=== PATIENT | female | born 1950 | race African-American/Black ===

== ENCOUNTER 2018-02-27 09:45 | Outpatient (CLI) | payer MEDICARE, OTHER | END 2018-02-27 09:46 | disposition home or self-care (01) | LOC: BICMAMMO 09:45 | PROVIDERS: ATTEND Family Medicine | DX: Z12.31 Encounter for screening mammogram for malignant neoplasm of breast (principal); Z80.3 Family history of malignant neoplasm of breast | CPT/HCPCS: 77063; 77067 ==

== ENCOUNTER 2018-05-16 10:08 | Outpatient (CLI) | payer MEDICARE, OTHER ==
--- NOTE | 2018-05-16 14:03 | RAD ---
RIGHT HAND THREE VIEWS: HISTORY: Weakness and deformity of the fourth and fifth digits. COMPARISON: None. FINDINGS: Along the medial margin of the proximal phalanx of the small finger is a sagittally oriented punctate calcification, which may reflect a small osseous avulsion from the ulnar collateral ligament. No ot her acute displaced fracture is appreciated. There is moderate narrowing of the metacarpophalangeal joints. Severe degenerative disease of the th umb carpometacarpal joint with hypertrophic osteophyte formation. There is narrowing of the radial c arpal joints. IMPRESSION: Possible small avulsion fracture of the ulnar collateral ligament insertion of the proximal phalanx o f the small finger. POS: [facility]
== END 2018-05-16 10:09 | disposition home or self-care (01) ==
LOC: BICRAD 10:08
PROVIDERS: ATTEND Physician Assistant Medical
DX: R29.898 Other symptoms and signs involving the musculoskeletal system (principal); M20.001 Unspecified deformity of right finger(s)

== ENCOUNTER 2019-02-22 12:21 | Outpatient (CLI) | payer MEDICARE, OTHER ==
--- NOTE | 2019-02-23 11:04 | EKG ---
Test Reason : Blood Pressure : / mmHG Vent. Rate : 053 BPM Atrial Rate : 053 BPM P-R Int : 136 ms QRS Dur : 088 ms QT Int : 458 ms P-R-T Axes : 071 066 077 degrees QTc Int : 429 ms Sinus bradycardia Nonspecific ST abnormality Abnormal ECG Confirmed by CARLITOS MARTINEZ ([id number]) on 02/23/2019 11:04:34 AM Referred By: MARINA Confirmed By:CARLITOS MARTINEZ
== END 2019-02-22 12:22 | disposition home or self-care (01) ==
LOC: LABBT 12:21
PROVIDERS: ATTEND Student in an Organized Health Care Education/Training Program
DX: Z01.818 Encounter for other preprocedural examination (principal); N85.02 Endometrial intraepithelial neoplasia [EIN]
CPT/HCPCS: 80053; 80076; 85027; 86850; 86900; 86901; 93005; 93010

== ENCOUNTER 2019-02-26 06:03 | Day surgery (SDC) | payer MEDICARE, OTHER ==
[2019-02-22 12:42] VITALS: BMI 39.9
[2019-02-22 13:51] LABS: Hemoglobin 12.3 g/dL (12.0-16.0); Mean Corpuscular HGB CONC 33.2 g/dL (32.0-36.0); Mean Corpuscular Hemoglobin 27.5 pg (27.0-31.0); Mean Corpuscular Volume 83.1 fL (78.0-98.0); Mean Platelet Volume 8.5 fL (7.4-10.4); Platelet Count 246 thou/uL (130-400); RBC Distribution Width 12.9 % (11.5-14.5); Red Blood Cell (RBC) Count 4.48 mill/uL (4.20-5.40); White Blood Cell (WBC) Count 8.7 thou/uL (4.8-10.8)
[2019-02-22 14:17] LABS: ALT (SGPT) 16 U/L (8-55); AST (SGOT) 21 U/L (5-34); Albumin 4.1 g/dL (3.4-4.8); Alkaline Phosphatase 103 U/L (40-150); Anion Gap 15 mmol/L (10-20); BUN (Urea Nitrogen) 19 mg/dL (9.8-20.1); Bilirubin, Direct 0.2 mg/dL (0.1-0.3); Bilirubin, Total 0.4 mg/dL (0.2-1.2); Calc. Creatinine Clearance 0 mL/min (70-130); Calcium 9.6 mg/dL (7.8-10.44); Carbon Dioxide 26 mmol/L (23-31); Chloride 105 mmol/L (98-107); Estimated GFR-MDRD 66; Glucose 96 mg/dL (80-115); Potassium 4.4 mmol/L (3.5-5.1); Protein, Total 7.1 g/dL (6.0-8.3); Sodium 142 mmol/L (136-145)
[2019-02-26] MEDS ORDERED: CeleCOXIB 100 MG CAP ONE (06:15)
[2019-02-26] MEDS ORDERED: Gabapentin 300 MG CAP ONE (06:15)
[2019-02-26] MEDS ORDERED: Famotidine/PF 20 mg/2ml Vial ONE (06:15)
[2019-02-26] MEDS ORDERED: Fentanyl 100 MCG/2 ML VIAL ONE (06:44)
[2019-02-26] MEDS ORDERED: Lidocaine 2% Jelly 5 ML TUBE ONE (06:59)
[2019-02-26] MEDS ORDERED: Bupivacaine HCl 0.5%/Epinephrine 1:200,000/PF 30 ml Vial ONE (07:18)
[2019-02-26] MEDS ORDERED: Bacitracin Zinc Ointment 30 gm TUBE ONE (09:20)
[2019-02-26] MEDS ORDERED: Promethazine HCl 25 MG/ML VIAL IM PRN ×2 (09:26→09:43)
[2019-02-26] MEDS ORDERED: Fentanyl 100 MCG/2 ML VIAL SLOW IVP PRN (09:26)
[2019-02-26] MEDS ORDERED: Zolpidem Tartrate 5 MG TAB PO PRN (09:26)
[2019-02-26] MEDS ORDERED: Ondansetron PF 4 MG/2 ML Vial IVP PRN (09:26)
[2019-02-26] MEDS ORDERED: Simethicone Chewable 80 MG TAB PO PRN (09:26)
[2019-02-26] MEDS ORDERED: diphenhydrAMINE 25 MG CAP PO PRN (09:26)
[2019-02-26] MEDS ORDERED: Bisacodyl 10 MG SUPP PR PRN (09:26)
[2019-02-26] MEDS ORDERED: Acetaminophen/Codeine 30-300mg Tablet PO PRN ×2 (09:26)
[2019-02-26] MEDS ORDERED: Acetaminophen 325 MG TAB PO PRN (09:26)
[2019-02-26] MEDS ORDERED: hydrALAZINE 20 MG/ML VIAL SLOW IVP PRN (09:30)
[2019-02-26] MEDS ORDERED: Ondansetron HCl/PF 4 MG/2 ML Vial IVP PRN (09:43)
[2019-02-26] MEDS ORDERED: Promethazine HCl 25 MG/ML VIAL SLOW IVP PRN (09:43)
[2019-02-26] MEDS: Sodium Chloride 0.9% 1,000 ML IV SCH (11:35)
--- NOTE | 2019-02-26 12:25 | OP ---
DATE OF PROCEDURE: 02/26/2019 PREOPERATIVE DIAGNOSIS: Complex atypical hyperplasia. POSTOPERATIVE DIAGNOSES: Complex atypical hyperplasia and left sided hydrosalpinx. PROCEDURES PERFORMED: Robotic-assisted total laparoscopic hysterectomy, bilateral salpingo-oophorectomy, and pelvic washings. WELLNESS PROGRAM ADMINISTRATOR SURGEON: Glenny Chew PA-C ANESTHESIA: General endotracheal. ESTIMATED BLOOD LOSS: 50 mL. IVF: 1200 mL crystalloid. URINE OUTPUT: 500 mL clear urine. COMPLICATIONS: None. DRAINS: Rosas catheter. PATHOLOGY: Uterus, cervix, bilateral fallopian tubes and ovaries, and pelvic washings. FINDINGS: Mobile eight-week size uterus sounded to 8 cm. Normal-appearing cervix. Right fallopian tube was normal. Left fallopian tube had what appeared to be a hydrosalpinx. The bilateral ovaries were normal appearing. There were no pelvic peritoneal implants that were concerning for malignancy. The ureters were visible throughout the case vermiculating and well away from the surgical site after dissecting through the retroperitoneum. Excellent hemostasis was noted. OPERATIVE TECHNIQUE: The patient was taken to the operating room, where general anesthesia was obtained without difficulty. The patient was prepped and draped in a sterile fashion in a dorsal lithotomy position. A Rosas catheter was placed in the bladder. A speculum was placed in the vagina. The anterior lip of the cervix grasped with a single-tooth tenaculum. The cervix was then dilated with Les dilators and the uterus then sounded to 8 cm. The PATI manipulator was assembled with an 8 cm tip and a 4 cm colpotomizer ring. The manipulator tip was inserted into the uterine fundus. The balloon was inflated. The speculum and tenaculum were removed out of the vagina and the colpotomizer ring was advanced, fit snugly around the cervix. Legs were placed in low lithotomy. Attention was turned to the abdomen. A 0.5% Marcaine with epinephrine was infiltrated into the umbilicus after making a 12 mm skin incision inside the umbilicus and a Veress needle was passed into the abdomen noting an opening pressure of 2 mmHg. Pneumoperitoneum was obtained without difficulty. The Veress needle was removed. The 12 mm trocar was inserted into the abdomen and the CO2 was hooked up. The robotic camera was then used to confirm placement and Trendelenburg was obtained. The right lower quadrant robotic 8 mm trocar was placed under direct visualization after infiltrating with anesthetic and making a skin incision. A right upper quadrant assistant auditor port was also placed under direct visualization after infiltrating with anesthetic and making an 11 mm skin incision. The left lower quadrant robotic 8 mm trocar was placed under direct visualization after infiltrating with anesthetic and making an 8 mm skin incision. The robot was then docked. The right robotic arm contained monopolar scissors and left robotic arm contained a fenestrated bipolar. The surgeon console then took control. Decision was made to do pelvic washings since there was a mass on the left fallopian tube. However, this was benign appearing and this was not visible on the patient's preoperative ultrasound. So, the pelvis was irrigated and then suctioned and sent for final cytology. The round ligament on the left side was then grasped and cauterized and incised. The peritoneum around the left fallopian tube and hydrosalpinx was then dissected off carefully, dissecting through the retroperitoneum to ensure the mass was not ruptured and there was no inadvertent injury to the underlying structures. This was done while tenting up with the fenestrated and incising with the scissors and taken down back around the infundibulopelvic ligament, and this was identified. Ureter was identified medial and a window was made in the IP ligament and the IP was clamped, cauterized, and transected. Hemostasis was noted. The anterior leaf of the broad ligament was incised down to the bladder. The posterior leaf of the broad ligament was incised down to the uterosacral as well. The retroperitoneum was dissected off the uterine vessels to allow the ureter to fall away. The ureter was visible during this portion of the case in the left pelvic sidewall directly visible after adequate skeletonization of the uterine pedicle. Attention was turned to the right side, where the right fallopian tube and ovary were grasped and elevated. The ureter was noted to be running medially. The IP ligament was clamped, cauterized, and transected and incised down to the level of the round ligament that was cauterized also in the midportion and transected. The posterior leaf of the broad ligament was dropped down all the while pushing away retroperitoneal fibers from the specimen and the ureter was also noted more distally towards where it crossed under the uterine artery. Once the posterior leaf was incised to the uterosacral ligament, the anterior leaf was also incised and the vesicouterine and peritoneum were then incised and the bladder flap was created after scoring on the pubocervical fascia and bluntly dissecting down well below the level of the colpotomizer ring. The vessels were skeletonized on the right side and clamped and cauterized after excellent visualization of the ureter as well as uterine artery and vein. The bladder was then checked again to ensure that this was dissected down far enough, especially in the lateral areas, where the pedicles were located. Further skeletonization was performed of the left side and that vessel was clamped, cauterized, and transected and the pedicle bilaterally was then incised off on the cardinal ligament to allow the pedicle to fall away and the ureter also to fall away at the same time. The colpotomy was performed anteriorly and once the lateral portions were met, the vaginal cuff hemostasis was achieved additionally by slipping the fenestrated underneath the cardinal ligament and cauterizing. Colpotomy was then performed. The uterus was then removed into the vagina along with the fallopian tubes and ovaries. The cuff was irrigated and suctioned and hemostasis was achieved with the fenestrated. The scissors were traded out for the needle trolley coach driver and the cuff was closed with a 2-0 STRATAFIX suture in a running fashion with excellent reapproximation and hemostasis noted. The stitch was run back for several sutures to secure it in place and the needle was removed out of the abdomen. Irrigation was again performed of the pelvis. Low pressure check was performed. There was one peritoneal edge, right over the ureter that was minimally oozing. However, secondary to this and the fact the patient takes aspirin, decision was made to place Shea and this was placed without difficulty. All instruments were then removed out of the abdomen. Pneumoperitoneum was released. The robot was undocked. The fascia of the umbilical port was closed with a 0 Vicryl in a [id number] fashion. The skin was closed with 4-0 Monocryl in a subcuticular fashion. Dermabond was applied. The vaginal cuff was checked and noted to be hemostatic and all instruments removed out of the vagina. The patient tolerated the procedure well. Sponge, lap, and needle counts were correct x2. The patient was taken to recovery room in stable condition. The patient received Ancef 2 g prior to the procedure. Job ID: [id number]
[2019-02-26] MEDS: Ketorolac Tromethamine 30 MG/ML VIAL IVP SCH ×2 (13:23→17:55)
[2019-02-26] MEDS ORDERED: Glycopyrrolate 0.2 MG/ML 5 ML SYRINGE ONE (13:51)
[2019-02-26] MEDS ORDERED: Rocuronium Bromide 10 MG/ML (10ML VIAL) ONE (13:51)
[2019-02-26] MEDS ORDERED: Dexamethasone 20 MG/5 ML VIAL ONE (13:51)
[2019-02-26] MEDS ORDERED: Lidocaine 1% PF 5 ML VIAL ONE (13:51)
[2019-02-26] MEDS ORDERED: PHENYLEPHRINE-NS 100 MCG/ML 10 ML SYRINGE ONE (13:51)
[2019-02-26] MEDS ORDERED: ePHEDrine 50 MG/ML VIAL ONE (13:51)
[2019-02-26] MEDS ORDERED: PROPOFOL 200 MG/20 ML VIAL ONE (13:51)
[2019-02-26] MEDS: Furosemide 20 MG TAB PO SCH (14:49)
[2019-02-26] MEDS: hydrALAZINE 25 MG TAB PO SCH ×2 (16:08→20:58)
[2019-02-27] MEDS: Ketorolac Tromethamine 30 MG/ML VIAL IVP SCH ×2 (00:15→05:53)
[2019-02-27] MEDS: Sodium Chloride 0.9% 1,000 ML IV SCH (06:04)
[2019-02-27 06:22] LABS: Hemoglobin 11.7 g/dL (12.0-16.0); Mean Corpuscular HGB CONC 32.1 g/dL (32.0-36.0); Mean Corpuscular Hemoglobin 26.9 pg (27.0-31.0); Mean Corpuscular Volume 83.9 fL (78.0-98.0); Platelet Count 229 thou/uL (130-400); RBC Distribution Width 12.8 % (11.5-14.5); Red Blood Cell (RBC) Count 4.36 mill/uL (4.20-5.40); White Blood Cell (WBC) Count 14.6 thou/uL (4.8-10.8)
--- NOTE | 2019-02-27 07:50 | PDOC.EVN ---
Event Note - Event Note Event Note: POD1 S: No complaints, pain minimal. No N/V. Abby diet. O: afebrile, BP nl-severe: very labile, pulse 50s mostly NAD RRR CTAB S/nt/nd/BS +, inc c/d/i 1+ pitting LLOYD bilat, DP pulses 1+ Hgb 11.7 BMP pending A) POD1 s/p RATLH BSO P) VSSAF DTV and ambulate po pain meds DC IV Cont home meds Home following above milestones Hgb appropriate postop BMP pending, will fu prior to DC.
[2019-02-27] MEDS ORDERED: Potassium Chloride 20 MEQ TAB PO SCH (08:00)
[2019-02-27] MEDS: hydrALAZINE 25 MG TAB PO SCH (08:57)
[2019-02-27] MEDS: Furosemide 20 MG TAB PO SCH (08:58)
[2019-02-27 09:00] LABS: Anion Gap 15 mmol/L (10-20); BUN (Urea Nitrogen) 20 mg/dL (9.8-20.1); Calc. Creatinine Clearance 90 mL/min (70-130); Calcium 8.5 mg/dL (7.8-10.44); Carbon Dioxide 22 mmol/L (23-31); Chloride 105 mmol/L (98-107); Estimated GFR-MDRD 58; Glucose 111 mg/dL (80-115); Potassium 4.6 mmol/L (3.5-5.1); Sodium 137 mmol/L (136-145)
[2019-02-27] MEDS ORDERED: Losartan 25 MG TAB PO SCH (09:00)
[2019-02-27 11:52] VITALS: BP 126/59; TEMP 97.6
[2019-02-27] MEDS ORDERED: Ibuprofen 800 MG TAB PO SCH (14:00)
== END 2019-02-27 14:15 | disposition home or self-care (01) ==
LOC: SDC 06:03 → 3SE 11:53 → SDC 02-27 14:15
PROVIDERS: ATTEND Student in an Organized Health Care Education/Training Program
PROC: 0UT94ZZ Resection of Uterus, Percutaneous Endoscopic Approach (ICD-10-PCS; principal; 2019-02-26)
PROC: 0UT24ZZ Resection of Bilateral Ovaries, Percutaneous Endoscopic Approach (ICD-10-PCS; 2019-02-26)
PROC: 0UT74ZZ Resection of Bilateral Fallopian Tubes, Percutaneous Endoscopic Approach (ICD-10-PCS; 2019-02-26)
DX: N85.01 Benign endometrial hyperplasia (principal); N83.8 Other noninflammatory disorders of ovary, fallopian tube and broad ligament; N70.11 Chronic salpingitis; Z79.82 Long term (current) use of aspirin; Z79.899 Other long term (current) drug therapy; Z88.5 Allergy status to narcotic agent
CPT/HCPCS: 36415; 80048; 80053; 80076; 85027; 86850; 86900; 86901; 88112; 88307; J0131; J0670; J0690; J1100; J1885; J2001; J2704; J3010; J3490; S0028

== ENCOUNTER 2019-04-17 09:22 | Outpatient (CLI) | payer MEDICARE, OTHER ==
--- NOTE | 2019-04-17 10:21 | MMO ---
Bilateral MAMMO Bilat Screen [facility]. CLINICAL HISTORY: Patient is 69 years old and is seen for screening. The patient has the following family history of breast cancer: sister. The patient has no personal history of cancer. VIEWS: The views performed were: bilateral craniocaudal with tomosynthesis and bilateral mediolateral oblique with tomosynthesis. FILMS COMPARED: The present examination has been compared to prior imaging studies performed at [facility] on 02/05/2015, 02/09/2016, 02/25/2017 and 02/27/2018. This study has been interpreted with the assistance of computer-aided detection. MAMMOGRAM FINDINGS: There are scattered fibroglandular densities. There is a stable focal asymmetry seen in the right breast. There are no suspicious masses, calcifications or areas of architectural distortion. There are no suspicious masses, suspicious calcifications, or new areas of architectural distortion. IMPRESSION: THERE IS NO MAMMOGRAPHIC EVIDENCE OF MALIGNANCY. A ROUTINE FOLLOW-UP MAMMOGRAM IN 1 YEAR IS RECOMMENDED. THE RESULTS OF THIS EXAM WERE SENT TO THE PATIENT. ACR BI-RADS Category 2 - Benign finding MAMMOGRAPHY NOTE: 1. A negative mammogram report should not delay a biopsy if a dominant of clinically suspicious mass is present. 2. Approximately 10% to 15% of breast cancers are not detected by mammography. 3. Adenosis and dense breasts may obscure an underlying neoplasm. Reported by: MESHA MONREAL MD Electonically Signed: [id number]
== END 2019-04-17 09:23 | disposition home or self-care (01) ==
LOC: BICMAMMO 09:22
PROVIDERS: ATTEND Family Medicine
DX: Z12.31 Encounter for screening mammogram for malignant neoplasm of breast (principal)
CPT/HCPCS: 77063; 77067

== ENCOUNTER 2020-04-21 11:14 | Outpatient (CLI) | payer MEDICARE, OTHER ==
--- NOTE | 2020-04-21 12:56 | MMO ---
Bilateral MAMMO Bilat Screen [facility]. CLINICAL HISTORY: Patient is 70 years old and is seen for screening. The patient has the following family history of breast cancer: sister. The patient has no personal history of cancer. VIEWS: The views performed were: bilateral craniocaudal with tomosynthesis and bilateral mediolateral oblique with tomosynthesis. FILMS COMPARED: The present examination has been compared to prior imaging studies performed at [facility] on 02/09/2016, 02/25/2017, 02/27/2018 and 04/17/2019. This study has been interpreted with the assistance of computer-aided detection. MAMMOGRAM FINDINGS: There are scattered fibroglandular densities. There are stable benign appearing calcifications seen in both breasts. There are no suspicious masses, suspicious calcifications, or new areas of architectural distortion. IMPRESSION: THERE IS NO MAMMOGRAPHIC EVIDENCE OF MALIGNANCY. A ROUTINE FOLLOW-UP MAMMOGRAM IN 1 YEAR IS RECOMMENDED. THE RESULTS OF THIS EXAM WERE SENT TO THE PATIENT. ACR BI-RADS Category 2 - Benign finding MAMMOGRAPHY NOTE: 1. A negative mammogram report should not delay a biopsy if a dominant of clinically suspicious mass is present. 2. Approximately 10% to 15% of breast cancers are not detected by mammography. 3. Adenosis and dense breasts may obscure an underlying neoplasm. Reported by: SUSANNAH LAWSON MD Electonically Signed: [id number]
== END 2020-04-21 11:15 | disposition home or self-care (01) ==
LOC: BICMAMMO 11:14
PROVIDERS: ATTEND Family Medicine
DX: Z12.31 Encounter for screening mammogram for malignant neoplasm of breast (principal); Z80.3 Family history of malignant neoplasm of breast
CPT/HCPCS: 77063; 77067

== ENCOUNTER 2021-01-23 13:14 | Outpatient (CLI) | payer MEDICARE, OTHER | END 2021-01-23 13:15 | disposition home or self-care (01) | LOC: BICRAD 13:14 | PROVIDERS: ATTEND Family Medicine | DX: M25.521 Pain in right elbow (principal); M19.021 Primary osteoarthritis, right elbow ==

== ENCOUNTER 2021-04-23 11:55 | Outpatient (CLI) | payer MEDICARE, OTHER | END 2021-04-23 11:56 | disposition home or self-care (01) | LOC: BICMAMMO 11:55 | PROVIDERS: ATTEND Family Medicine | DX: Z12.31 Encounter for screening mammogram for malignant neoplasm of breast (principal); Z80.3 Family history of malignant neoplasm of breast | CPT/HCPCS: 77063; 77067 ==

== ENCOUNTER 2022-04-29 11:23 | Outpatient (CLI) | payer MEDICARE, OTHER | END 2022-04-29 11:24 | disposition home or self-care (01) | LOC: BICMAMMO 11:23 | PROVIDERS: ATTEND Family Medicine | DX: Z12.31 Encounter for screening mammogram for malignant neoplasm of breast (principal); Z80.3 Family history of malignant neoplasm of breast | CPT/HCPCS: 77063; 77067 ==

== ENCOUNTER 2023-06-01 13:31 | Outpatient (CLI) | payer MEDICARE, OTHER | END 2023-06-01 13:32 | disposition home or self-care (01) | LOC: BICMAMMO 13:31 | PROVIDERS: ATTEND Family Medicine | DX: Z12.31 Encounter for screening mammogram for malignant neoplasm of breast (principal); Z80.3 Family history of malignant neoplasm of breast | CPT/HCPCS: 77063; 77067 ==